=== PATIENT | female | born 2000 | race Two or more races ===

== ENCOUNTER 2023-12-20 07:06 | Emergency (ER) | payer MEDICAID ==
[~2023-12-20] VITALS: Ht 157.5 cm; Wt 86.4 kg
[2023-12-20 07:09] VITALS: BP 149/84; PULSE 94; RESP 18; TEMP 99.1
[2023-12-20] MEDS ORDERED: AMOX250C4 PO (08:16)
[2023-12-20] MEDS ORDERED: CORTSOL AD (08:16)
[2023-12-20] MEDS: KETOROLAC TROMETHAMINE 30 MG/ML VIAL IM ONE (08:18)
[2023-12-20] MEDS ORDERED: HYDR-4723 PO (19:22)
[2023-12-20] MEDS ORDERED: IBUP-1554 PO (19:22)
== END 2023-12-20 08:35 | disposition home or self-care (01) ==
LOC: EMS 07:08
DX: H60.91 Unspecified otitis externa, right ear (principal); J45.909 Unspecified asthma, uncomplicated
CPT/HCPCS: 99283; 96372; J1885

== ENCOUNTER 2023-12-20 17:44 | Emergency (ER) | payer MEDICAID ==
[~2023-12-20] VITALS: Ht 157.5 cm; Wt 108.2 kg
[~2023-12-20 17:44] MED LIST: AMOX250C4 PO; CORTSOL AD
[2023-12-20 17:49] VITALS: BP 141/81; PULSE 98; RESP 18; TEMP 98.7
[2023-12-20] MEDS: HYDROCODONE/ACETAMINOPHEN 5-325 MG TABLET PO ONE (19:16)
[2023-12-20] MEDS: KETOROLAC TROMETHAMINE 60 MG/2 ML VIAL IM ONE (19:16)
[2023-12-20] MEDS ORDERED: HYDR-4723 PO (19:22)
[2023-12-20] MEDS ORDERED: IBUP-1554 PO (19:22)
== END 2023-12-20 19:35 | disposition home or self-care (01) ==
LOC: EMS 17:49
DX: H60.91 Unspecified otitis externa, right ear (principal); J45.909 Unspecified asthma, uncomplicated
CPT/HCPCS: 99283; 96372; J1885

== ENCOUNTER 2024-04-10 06:07 | Emergency (ER) | payer MEDICAID ==
[~2024-04-10] VITALS: Ht 160 cm; Wt 81.8 kg
[~2024-04-10 06:07] MED LIST changes: +HYDR-4062 PO; +IBUP-1554 PO
[2024-04-10 06:26] VITALS: TEMP 98.4
[2024-04-10] MEDS ORDERED: DIPH-1243 PO (06:54)
[2024-04-10 07:03] VITALS: BP 126/75; PULSE 72; RESP 18
== END 2024-04-10 07:05 | disposition home or self-care (01) ==
LOC: EMS 06:07
DX: H02.841 Edema of right upper eyelid (principal); J45.909 Unspecified asthma, uncomplicated
CPT/HCPCS: 99282; Z7502